=== PATIENT | female | born 1985 | race Caucasian/White ===

== ENCOUNTER 2017-04-26 13:09 | Emergency (ER) | payer MEDICARE, MEDICAID, SELFPAY ==
--- NOTE | 2017-04-26 13:29 | XR_ITS ---
XR chest 2V INDICATION: Wheezing, suspect bronchitis COMPARISON: None available FINDINGS: The cardiovascular structures are unremarkable. No mediastinal shift or hilar mass is evident. The lungs are well expanded and clear bilaterally. The costophrenic sulci are sharp. No significant bony anomalies are apparent. IMPRESSION: Negative chest.
[2017-04-26 14:35] VITALS: BP 124/60; PULSE 65; RESP 20; TEMP 37.2; O2SAT 99; BMI 42.0
--- NOTE | 2017-04-26 15:24 | HMH.EDUTC ---
[facility] [place] Disposition Clinical Impression: Cough Disposition: Home, Self-Care Condition on Discharge: Good Instructions: Cough Additional Instructions: * No sign of bacterial infection. Likely viral. Virus can take 7-14 days to run their course * Monitor Temp. Follow up if fever develops * Encourage fluids, water, gatorade, powerade, pedialyte if /toddler/child * sleep elevated * humidifier/vaporizer * Discussed bromfed. Mom declined. Has robitussin and tessalon perles at home. Aware if cough becomes productive, stop tessalon perles and start mucinex but be sure to follow up Follow up with primary care IMMEDIATELY for new or worsening symptoms OR no noticeable improvement over the next 48-72 hours. 911 for difficulty breathing. Time of Disposition: 15:33 Medical Decision Making Vital Signs: 04/26/17 14:35 Temperature 98.9 F Temperature Source Oral Pulse Rate [Left Brachial] 65 Respiratory Rate 20 Blood Pressure [Left Arm] 124/60 Blood Pressure Mean [Left Arm] 81 Blood Pressure Source [Left Arm] Automatic Cuff Blood Pressure Position [Left Arm] Sitting 02 Sat by Pulse Oximetry 99 Oxygen Delivery Method Room Air - Liam Inquiry Pt receiving controlled substance: No [facility] [place] HPI - General Stated complaint: fever cough Time Seen by Provider: 04/26/17 15:10 Mode of Arrival: Ambulatory Source of Information: Patient, Parent(s) Limitations: No Limitations Description of Symptoms (Recalled from Triage Doc. by RN): mom states that herself and pt's father have both had bronchitis and pt is now rattling in her chest and has a cough HEENT Symptoms (Recalled from RN notes): No Resp Symptoms (Recalled from RN notes): Yes (cough, rattling in chest, exposed to bronchitis) Skin Symptoms (Recalled from RN notes): No MS Symptoms (Recalled from RN notes): No Functional Status (Recalled from RN notes): n/a - History of Present Illness Provider Complaint: Here w/ mom c/o cough. Started yesterday. Coughed a lot last night. Mom wants to rule out pneumonia because pt is prone to having pneumonia when a cough develops. [place] feverish but no documented fever. Pt denies aches, chills, sore throat. Mom and dad both have been dx w/ bronchitis and neg for flu. Mom doesn't feel like this is the flu and declines flu test. No treatment prior to arrival. - Worker's Comp Is this a Worker's Comp case?: No [facility] History I have reviewed the patient's past medical history: Yes (down syndrome, hypothyroidism, adult acne, environmental allergies) Medical History: Reports:: Hypertension Denies:: Cancer, Diabetes Mellitus Type 1, Diabetes Mellitus Type 2, MRSA Laterality Cases: Bilateral: Tonsillectomy Other Surgeries: Yes: Other (cedrick, wisdom teeth) Amputation: No Fractures: No - *Social History Smoking Status: Never smoker Alcohol Intake: never - Psychiatric History Expresses thoughts of harming self/others: None Suicide Plan Description: No Plan ROS Obtained: Yes Systems reviewed as appropriate & no additional complaints - Constitutional Constitutional: Denies anorexia, Denies body ache, Denies chills, Denies fatigue - Eyes Eyes: Denies eye discharge - ENT Ears, Nose, Mouth, and Throat: Denies difficulty swallowing, Denies otalgia, Reports nasal congestion, Reports nasal discharge, Reports post nasal drip, Denies sinus pain, Denies sinus pressure, Denies sore throat, Denies throat swelling - Cardiovascular Cardiovascular: Denies chest pain, Denies irregular heart rhythm - Respiratory Respiratory: Yes chest congestion, Yes non-productive cough, No dyspnea, No pain with cough, No wheezing - Gastrointestinal Gastrointestingal: Denies: diarrhea, vomiting - Integumentary/Breasts Skin/Breast: Denies lesions, Denies rash - Neurologic Neurologic: Denies dizziness, Denies headache(s) Physical Exam - General General appearance: alert, in no apparent distress, obese - Eye Eye exam: Present: normal appearance - ENT ENT
--- NOTE | 2017-04-26 15:31 | ED_ITS ---
[facility] [place] Disposition Clinical Impression: Cough Disposition: Home, Self-Care Condition on Discharge: Good Instructions: Cough Additional Instructions: * No sign of bacterial infection. Likely viral. Virus can take 7-14 days to run their course * Monitor Temp. Follow up if fever develops * Encourage fluids, water, gatorade, powerade, pedialyte if /toddler/ child * sleep elevated * humidifier/vaporizer * Discussed bromfed. Mom declined. Has robitussin and tessalon perles at home. Aware if cough becomes productive, stop tessalon perles and start mucinex but be sure to follow up Follow up with primary care IMMEDIATELY for new or worsening symptoms OR no noticeable improvement over the next 48-72 hours. 911 for difficulty breathing.* Time of Disposition: 15:33 Medical Decision Making Vital Signs: 04/26/17 14:35 Temperature 98.9 F Temperature Source Oral Pulse Rate [Left Brachial] 65 Respiratory Rate 20 Blood Pressure [Left Arm] 124/60 Blood Pressure Mean [Left Arm] 81 Blood Pressure Source [Left Arm] Automatic Cuff Blood Pressure Position [Left Arm] Sitting 02 Sat by Pulse Oximetry 99 Oxygen Delivery Method Room Air - Liam Inquiry Pt receiving controlled substance: No [facility] [place] HPI - General Stated complaint: fever cough Time Seen by Provider: 04/26/17 15:10 Mode of Arrival: Ambulatory Source of Information: Patient, Parent(s) Limitations: No Limitations Description of Symptoms (Recalled from Triage Doc. by RN): mom states that herself and pt's father have both had bronchitis and pt is now rattling in her chest and has a cough HEENT Symptoms (Recalled from RN notes): No Resp Symptoms (Recalled from RN notes): Yes (cough, rattling in chest, exposed to bronchitis) Skin Symptoms (Recalled from RN notes): No MS Symptoms (Recalled from RN notes): No Functional Status (Recalled from RN notes): n/a - History of Present Illness Provider Complaint: Here w/ mom c/o cough. Started yesterday. Coughed a lot last night. Mom wants to rule out pneumonia because pt is prone to having pneumonia when a cough develops. [place] feverish but no documented fever. Pt denies aches, chills, sore throat. Mom and dad both have been dx w/ bronchitis and neg for flu. Mom doesn't feel like this is the flu and declines flu test. No treatment prior to arrival. - Worker's Comp Is this a Worker's Comp case?: No [facility] History I have reviewed the patient's past medical history: Yes (down syndrome, hypothyroidism, adult acne, environmental allergies) Medical History: Reports:: Hypertension Denies:: Cancer, Diabetes Mellitus Type 1, Diabetes Mellitus Type 2, MRSA Laterality Cases: Bilateral: Tonsillectomy Other Surgeries: Yes: Other (cedrick, wisdom teeth) Amputation: No Fractures: No - *Social History Smoking Status: Never smoker Alcohol Intake: never - Psychiatric History Expresses thoughts of harming self/others: None Suicide Plan Description: No Plan ROS Obtained: Yes Systems reviewed as appropriate & no additional complaints - Constitutional Constitutional: Denies anorexia, Denies body ache, Denies chills, Denies fatigue - Eyes Eyes: Denies eye discharge - ENT Ears, Nose, Mouth, and Throat: Denies difficulty swallowing, Denies otalgia, Reports nasal congestion, Reports nasal discharge, Reports post nasal drip, Denies sinus pain, Denies sinus pressure, Denies sore throat, Denies throat swelling - Cardiovascular Cardiovascular: De
[2017-04-26 15:36] VITALS: BP 124/60; PULSE 65; RESP 20; TEMP 37.2; O2SAT 99
== END 2017-04-26 15:38 | disposition home or self-care (01) ==
PROVIDERS: Emergency Provider Nurse Practitioner Family; Family Provider Family Medicine; PCP Internal Medicine Adolescent Medicine
DX: R05 Cough (principal); R50.9 Fever, unspecified
CPT/HCPCS: 71046; 99202; 99282

== ENCOUNTER → 2017-06-17 09:58 | Outpatient (POV) | payer MEDICARE, MEDICAID, SELFPAY | PROVIDERS: Family Provider Family Medicine; PCP Internal Medicine Adolescent Medicine; Visit Provider Otolaryngology | DX: Z00.00 Encounter for general adult medical examination without abnormal findings (principal) ==

== ENCOUNTER → 2018-01-29 16:16 | Outpatient (CLI) | payer MEDICARE, MEDICAID, SELFPAY ==
[2018-01-29 16:24] LABS: Adenovirus F 40/41, stool Not Detected (NotDetected); Astrovirus Not Detected (NotDetected); Campylobacter Not Detected (NotDetected); Clostridium Difficile A/B, PCR Not Detected (NotDetected); Cryptosporidium Not Detected (NotDetected); Cyclospora Cayetanesis Not Detected (NotDetected); Entamoeba histolytica Not Detected (NotDetected); Enteroaggregative E coli Not Detected (NotDetected); Enterotoxigenic E coli Not Detected (NotDetected); Giardia lamblia Not Detected (NotDetected); Norovirus Not Detected (NotDetected); Plesimonas Shigalloides, PCR Not Detected (NotDetected); Rotavirus A Not Detected (NotDetected); Salmonella, PCR Not Detected (NotDetected); Sapovirus Not Detected (NotDetected); Shiga-like toxin E coli Not Detected (NotDetected); Shigella Enterovasive E coli Not Detected (NotDetected); Vibrio Cholerae Not Detected (NotDetected); Vibrio, PCR Not Detected (NotDetected); Yersinia Entercolitica, PCR Not Detected (NotDetected)
[2018-01-29 22:32] LABS: Enteropathogenic E coli Detected (NotDetected)
== END ==
PROVIDERS: PCP Family Medicine; Visit Provider Internal Medicine Gastroenterology
DX: R19.7 Diarrhea, unspecified (principal)
CPT/HCPCS: 87507

== ENCOUNTER → 2018-03-03 09:54 | Outpatient (POV) | payer MEDICARE, MEDICAID, SELFPAY | PROVIDERS: Visit Provider Dermatology | DX: Z00.00 Encounter for general adult medical examination without abnormal findings (principal) ==

== ENCOUNTER → 2018-04-21 10:28 | Outpatient (POV) | payer MEDICARE, MEDICAID, SELFPAY | PROVIDERS: Visit Provider Dermatology | DX: Z00.00 Encounter for general adult medical examination without abnormal findings (principal) ==

== ENCOUNTER 2018-07-21 14:30 | Outpatient (RCR) | payer MEDICARE, MEDICAID, SELFPAY ==
--- NOTE | 2018-05-27 12:01 | HMH.PTOPEV ---
PT Outpatient Evaluation Rehab PT Outpatient Evaluation Start: 05/27/18 11:50 Freq: Status: Active Protocol: Document 05/27/18 11:50 MARY (Rec: 05/27/18 12:01 [email or web address] [id number]) Electronically Signed By Nba Merchant, PT 05/27/18 11:50 Outpatient Therapy Subjective History Subjective History Patient is a 33 year old female presenting to outpatient PT with reports of bilateral knee pain starting approximately 1 year ago of insidious onset per pt report. Most recent diagnostics indicate bilateral knee OA. Symptoms elevated with running /jumping/recreational activities. Comorbidites include down's syndrome, elevated BMI and OA. Chief Complaint Pain Stiff Clicks Weakness Symptom Type Ache Symptoms Relieved By Rest/Positioning Prior Functional Limitations None Current Functional Limitations Standing Squatting Recreation Activity Walking Stairs Balance Symptom Description Intermittent Level of pain today (0-10) 0 Pain scale - at its best (0-10) 0 Pain scale - at its worst (0-10) 5 Hip/Knee Eval Gait Observation General Gait Pattern Observation No Deviations/Normal Assistive Device Assistive Devices None / NA Palpation Tenderness bilateral Knee Palpation Finding Tenderness Knee Palpation Overall Comment posterior compartment MMT Hip Flexion Strength Grade 4- Good- Hip Abduction Strength Grade 3+ Fair+ Hip Adduction Strength Grade 4- Good- Hip Extension Strength Grade 3+ Fair+ Hip External Rotation Strength Grade 3+ Fair+ Hip Internal Rotation Strength Grade 3+ Fair+ Knee Extension Strength Grade 3+ Fair+ Knee Flexion Strength Grade 3+ Fair+ ROM right Hip ROM Reason Not Measured Within Functional Limits Knee Extension Active Range of Motion ( -4 degrees) Knee Flexion Active Range of Motion ( 98 degrees) left Hip ROM Reason Not Measured Within Functional Limits Knee Extension Active Range of Motion ( -5 degrees) Knee Extension Passive Range of Motion ( 0 degrees) Knee Flexion Active Range of Motion ( 94 degrees)
== END 2018-07-21 14:35 | disposition home or self-care (01) ==
LOC: PT 14:30
PROVIDERS: Visit Provider Nurse Practitioner Family
DX: M25.561 Pain in right knee (principal); M25.562 Pain in left knee
CPT/HCPCS: 97110; 97112; 97163

== ENCOUNTER → 2020-08-15 14:16 | Outpatient (POV) | payer MEDICARE, MEDICAID, SELFPAY | PROVIDERS: Visit Provider Dermatology | DX: Z00.00 Encounter for general adult medical examination without abnormal findings (principal) ==

== ENCOUNTER → 2020-10-09 12:44 | Outpatient (CLI) | payer MEDICARE, MEDICAID, SELFPAY ==
--- NOTE | 2020-10-09 | CA_ITS ---
APPROVED REPORT EXAM: Comprehensive 2D, Doppler, and color-flow Echocardiogram Certified Nurse Operating Room: Yanelis Neri RT(R) Ht: 4 ft 8 in Wt: 260lbs BSA: 1.98 BP: 124/60 mmHg Indications: Murmur, down's syndrome, HTN, obesity 2D Dimensions LVOT 1.76 cm (M/F) 1.5-2.5 LA Volume 29.50 mL LA Volume Index 14.89 mL/m2 (M/F) 16-34 M-Mode Dimensions RVDd 1.86 cm (0.9-2.6) LA Diam 3.84 cm (1.9-4.0) LVDd 4.36 cm (3.5-5.7) Ao Diam 2.12 cm (2.0-3.7) LVDs 3.25 cm (3.5-5.7) IVSd 1.04 cm (0.6-1.1) PWd 1.04 cm (0.6-1.1) EF (Teich) 50.50% FS 25.50% EDV (Teich) 85.80 mL ESV (Teich) 42.50 mL LV Diastology E Decel Time 227.00 (160-240 msec) E/A Ratio 1.5 MED E' 7.60 (< 7 cm/sec) E'/MED E' Ratio 22.93 (>14) LAT E' 9.20 (<10 cm/sec) E/LAT E' Ratio 18.95 (>14) Aortic Valve LVOT Max 188.00 (70-110 cm/s) LVOT VTI 36.90 cm AoV Peak Ricardo. 316.00 (50-130 cm/s) AI PHT 738.00 ms AO Peak GR. 40.10 mmHg AO Mean GR. 19.80 (<5 mmHg) AO VTI 62.52 (18-25 cm) SANTOS (VTI) 1.44 (2.5-4.5 cm2) Mitral Valve MV E Max Ricardo. 174.00 (40-130 cm/s) MV A Velocity 118.00 (40-130 cm/s) E/A Ratio 1.48 MV Decel. Time 227.00 (160-240 ms) MV PHT 66.00 ms Tricuspid Valve TR P. Velocity 251.00 cm/s RAP Estimate 10.00 mmHg RVSP 35.20 mmHg Left Ventricle Left atrium is mildly enlarged, left ventricle is normal size, mild concentric left ventricular hypertrophy, visually estimated ejection fraction 55% with no regional wall motion abnormality, diastolic parameters are inconclusive. Right Ventricle Right atrium and right ventricle are normal size and contractility. Aortic Valve Aortic valve is thickened and calcified, mean gradient across valve is 22 mmHg, valve area is 1.4 cm, represents mild aortic stenosis, there is mild aortic insufficiency. Mitral Valve Mitral valve leaflets are minimally thickened, there is mild mitral regurgitation. Tricuspid Valve Tricuspid grossly normal, there is mild tricuspid regurgitation, tricuspid regurgitation (inadequate for calculation of the right ventricular systolic pressure. Pulmonic Valve Pulmonic valve is poorly visualized. Great Vessels Aortic root is normal size. Pericardium No significant pericardial effusion noted. Conclusion 1. Mildly enlarged left atrium, normal left ventricular size, mild concentric left ventricular hypertrophy, visually estimated ejection fraction 55% with no regional wall motion abnormality, diastolic parameters are inconclusive. 2. Thickened and calcified aortic valve with mean gradient across valve of 22 mmHg, valve area 1.4 cm by represents mild aortic stenosis, there is mild aortic insufficiency. 3. Mild mitral and tricuspid regurgitation. 4. No significant pericardial effusion noted. Electronically signed by : Frank Otto, 10/09/2020 21:51:52
== END ==
PROVIDERS: PCP Family Medicine; Visit Provider Nurse Practitioner Family
DX: R01.1 Cardiac murmur, unspecified (principal)
CPT/HCPCS: 93306

== ENCOUNTER 2022-03-05 09:21 | Emergency (ER) | payer MEDICARE, MEDICAID, SELFPAY ==
[2022-03-05 09:40] VITALS: BP 118/57; PULSE 68; RESP 18; TEMP 36.9; O2SAT 100; BMI 41.8
--- NOTE | 2022-03-05 10:11 | EXP.UTC ---
Discharge Plan Disposition Patient Disposition: Home, Self-Care Condition: Good Prescriptions Prescriptions: New prednisone 10 mg tablet 10 mg PO BID 5 Days Qty: 10 0RF azithromycin [Zithromax Z-Bolivar] 250 mg tablet See Rx Instructions .ROUTE .COMPLEX 5 Days Qty: 6 0RF Rx Instructions: For 250 mg dose pack: take 500 mg today (day 1), then 250 mg for 4 days (days 2-5) guaifenesin [Mucinex] 600 mg tablet extended release 12hr 600 mg PO BID PRN (Reason: cough) Qty: 20 0RF No Action norgestimate-ethinyl estradiol [Estarylla] 0.25-35 mg-mcg tablet 1 tab PO DAILY levothyroxine 25 mcg tablet 25 mcg PO DAILY levothyroxine 200 mcg tablet 200 mcg PO DAILY Referrals Follow up/Referrals: Paula Thomas APRN [Primary Care Provider] - See instructions Activity Restrictions/Add. Instructions Additional Instructions/Restrictions: *Monitor Temp, Over the counter Motrin or Tylenol as directed/as needed Tylenol every 4 hours and Motrin every 6 hours (as long as your family doctor has told you that you can take it) for fever or pain. and straight to ER if unable to lower temp less than 101.0 after medication given *Warm salt water gargles may help to soothe the throat *Throat Lozenges? *Warm fluids like tea with honey may help to soothe the throat? *Sleep elevated *Humidifier/Vaporizer *If you did not take Penicillin shot or was unable to, start taking antibiotic immediately and make sure that you take it for the FULL length of time although you should start to feel better in 24-48 hours *change toothbrush and toothpaste 24-48 hours after starting to take antibiotics so you do not reinfect yourself Monitor Temp. Tylenol and/or Ibuprofen as needed. ER if fever is no less than 101 despite alternating Tylenol and Ibuprofen * Encourage fluids, water, Gatorade, powerade, pedialyte if infant/toddler/or child *Cold fluids, popsicles and ice cream may feel good on his throat Follow up IMMEDIATELY for new or worsening symptoms or no Noticeable improvement over the next 48-72 hours. 911 for difficulty breathing or swallowing Clinical Impressions Clinical Impression: Strep throat Instructions Patient Instructions: DI for Strep Throat, Strep Throat, Prednisone Discharge ED Provider: Mary Dudley [facility] [place] H[place] General Stated complaint: cough, sob Mode of Arrival: Ambulatory Source of Information: Patient and Parent(s) Limitations: No Limitations Time Seen by Provider: 03/05/22 10:11 Description of Symptoms (Recalled from Triage Doc. by RN): MOTHER REPORTS CHILD WITH COUGH, RUNNY NOSE, AND CONGESTION SINCE FRIDAY HEENT Symptoms (Recalled from RN notes): Yes Resp Symptoms (Recalled from RN notes): Yes Skin Symptoms (Recalled from RN notes): No MS Symptoms (Recalled from RN notes): No Functional Status (Recalled from RN notes): WNL History of Present Illness Provider Complaint: Mother states that she hasnt been feeling well for several days States that she has been having chest congestion, cough, runny nose and hoarse sounding voice States that today she wasnt feeling well so she brought her in to get her checked out Related Data Home Medications Medication Instructions Recorded Confirmed levothyroxine 200 mcg tablet 200 mcg PO DAILY THYROID 03/05/22 03/05/22 levothyroxine 25 mcg tablet 25 mcg PO DAILY THYROID 03/05/22 03/05/22 norgestimate 0.25 mg-ethinyl 1 tab PO DAILY control 03/05/22 03/05/22 estradiol 35 mcg tablet (Estarylla) Previous Rx's Medication Instructions Recorded azithromycin 250 mg tablet See Rx Instructions PO .COMPLEX 5 03/05/22 (Zithromax Z-Bolivar) days #6 tabs guaifenesin 600 mg tablet, 600 mg PO BID PRN cough #20 tabs 03/05/22 extended release 12 hr (Mucinex) prednisone 10 mg tablet 10 mg PO BID 5 days #10 tabs 03/05/22 Allergies Allergy/AdvReac Type Severity Reaction Status Date / Time No Known Allergies Allergy Verified 03/05/22 09
[2022-03-05 10:20] LABS: UTC Strep Screen (Rapid) Positive (Negative)
[2022-03-05 10:30] VITALS: BP 118/57; PULSE 68; RESP 18; TEMP 36.9; O2SAT 100
== END 2022-03-05 10:39 | disposition home or self-care (01) ==
PROVIDERS: Emergency Provider Nurse Practitioner; PCP Nurse Practitioner Family
DX: J02.0 Streptococcal pharyngitis (principal); B95.0 Streptococcus, group A, as the cause of diseases classified elsewhere; R50.9 Fever, unspecified; R06.02 Shortness of breath; R05.9 Cough, unspecified; R09.81 Nasal congestion; E07.9 Disorder of thyroid, unspecified; J45.909 Unspecified asthma, uncomplicated; Z79.52 Long term (current) use of systemic steroids; Z79.899 Other long term (current) drug therapy; Z79.3 Long term (current) use of hormonal contraceptives
CPT/HCPCS: 87880; 99213; G0463

== ENCOUNTER 2023-05-24 10:07 | Emergency (ER) | payer MEDICARE, MEDICAID, SELFPAY ==
--- NOTE | 2023-05-24 11:08 | ED_ITS ---
Discharge Plan Disposition Patient Disposition: Home, Self-Care Condition: Good Prescriptions Prescriptions: New benzonatate [benzonatate] 100 mg capsule 100 mg PO TIDP PRN (Reason: Cough) Qty: 30 0RF oseltamivir [Tamiflu] 75 mg capsule 75 mg PO BID Qty: 10 0RF ondansetron 4 mg Tablet,Disintegrating 4 mg PO Q8H PRN (Reason: Nausea) Qty: 12 0RF No Action norgestimate-ethinyl estradiol [Estarylla] 0.25-35 mg-mcg tablet 1 tab PO DAILY tretinoin 0.025 % cream 1 applic TOPICAL DAILY fluconazole 200 mg tablet 200 mg PO DAILY levothyroxine 25 mcg tablet 25 mcg PO DAILY levothyroxine 200 mcg tablet 200 mcg PO DAILY Referrals Follow up/Referrals: Adama Weaver MD [Primary Care Provider] - See instructions Activity Restrictions/Add. Instructions Additional Instructions/Restrictions: Drink plenty of fluids. Take tylenol or ibuprofen for pain or fever. Take the medications as directed. Follow up with your regular doctor. GO TO THE ER FOR ANY WORSENING SYMPTOMS Clinical Impressions Clinical Impression: Influenza A Instructions Patient Instructions: DI for Influenza -- Adult, Ondansetron, Oseltamivir Discharge ED Provider: Pedro Styles [facility] General Stated complaint: fever 101 sore throat, cough Time Seen by Provider: 05/24/23 11:08 History of Present Illness Provider Complaint: She states that for the past 2 days she has had fever, chills, malaise, body aches, and a cough. Related Data Home Medications Medication Instructions Recorded Confirmed fluconazole 200 mg tablet 200 mg PO DAILY 05/24/23 05/24/23 levothyroxine 200 mcg tablet 200 mcg PO DAILY 05/24/23 05/24/23 levothyroxine 25 mcg tablet 25 mcg PO DAILY 05/24/23 05/24/23 norgestimate 0.25 mg-ethinyl 1 tab PO DAILY 05/24/23 05/24/23 estradiol 35 mcg tablet (Estarylla) tretinoin 0.025 % topical cream 1 applic topical DAILY 05/24/23 05/24/23 Previous Rx's Medication Instructions Recorded benzonatate 100 mg capsule 100 mg PO TIDP PRN Cough #30 caps 05/24/23 ondansetron 4 mg disintegrating 4 mg PO Q8H PRN Nausea #12 tabs 05/24/23 tablet oseltamivir 75 mg capsule (Tamiflu) 75 mg PO BID #10 caps 05/24/23 Allergies Allergy/AdvReac Type Severity Reaction Status Date / Time No Known Allergies Allergy Verified 03/05/22 09:49 [facility] Disclaimer: The information contained in this section may have been updated after the patient was seen, as this information can be updated by other users. Medical History (Updated 05/24/23 @ 11:38 by Pedro Styles APRN) Asthma Thyroid disease Surgical History (Updated 03/05/22 @ 09:48 by Jennifer Nayak RN) History of cholecystectomy History of tonsillectomy History of tympanostomy tube placement Social History (Updated 03/05/22 @ 10:25 by Mary Dudley APRN) Smoking Status: Never smoker alcohol intake: never current occupational status: other Travel in the last 8 weeks: None ROS Obtained: Yes All systems reviewed & no additional complaints except as documented Constitutional Constitutional: Reports chills and Reports fever(s) Eyes Eyes: Denies eye discharge ENT Ears, Nose, Mouth, and Throat: Reports as per HPI Cardiovascular Cardiovascular: Denies chest pain Respiratory Respiratory: Denies chest congestion and Reports cough Gastrointestinal Gastrointestingal: Reports nausea; Denies abdominal pain, constipation, cramping, diarrhea or vomiting Musculoskeletal Musculoskeletal: Denies arthralgias Integumentary/Breasts Skin/Breast: Denies rash Neurologic Neurologic: Denies paresthesias Physical Exam General General appearance: alert and in no apparent distress Head Head exam: atraumatic, normocephalic and normal inspection Eye Eye exam: Present normal appearance, PERRL and EOMI ENT ENT exam: Present normal exam, normal oropharynx, mucous membranes moist, TM's normal bilaterally and normal external ear exam Neck Neck exam: Present normal inspection, full ROM and trachea midline; Absent meningismus or lymphadenopathy Chest Chest inspection: Present normal inspection and symmetric chest wall rise; Absent tenderness Respiratory Respiratory exam: Present normal lung sounds bilaterally; Absent respiratory distress Cardiovascular Cardiovascular exam: Present regular rate and normal rhythm; Absent JVD Abdominal Exam Abdominal exam: Present soft and normal bowel sounds; Absent distention, tenderness or guarding Extremities Exam Extremities exam: Present normal inspection, full ROM and normal capillary refill; Absent calf tenderness Back Exam Back exam: Present normal inspection; Absent tenderness Neurological Exam Neurological exam: Present alert and oriented X3 Psychiatric Psychiatric exam: Present normal affect and normal mood Skin Skin exam: Present warm, dry, intact and normal color Lymphatic Lymphatic Findings: no adenopathy Medical Decision Making Medical Records Medical records reviewed: No I reviewed the patient's medical records. Liam Inquiry Pt receiving controlled substance: No Lab Data Lab results reviewed: Yes I reviewed the patient's lab results.
[2023-05-24 11:10] VITALS: BP 139/66; PULSE 66; RESP 20; TEMP 36.6; O2SAT 99; BMI 45.3
[2023-05-24 11:40] LABS: UTC Strep Screen (Rapid) Negative (Negative)
[2023-05-24 11:41] LABS: UTC Influenza A Antigen Positive (Negative); UTC Influenza B Antigen Negative (Negative)
[2023-05-24 11:42] VITALS: BP 139/66; PULSE 66; RESP 20; TEMP 36.6; O2SAT 99
== END 2023-05-24 11:49 | disposition home or self-care (01) ==
PROVIDERS: Emergency Provider Nurse Practitioner Family; PCP Family Medicine
DX: J10.1 Influenza due to other identified influenza virus with other respiratory manifestations (principal); R50.9 Fever, unspecified; R05.9 Cough, unspecified; R07.0 Pain in throat; R53.81 Other malaise; E03.9 Hypothyroidism, unspecified
CPT/HCPCS: 87804; 87880; 99212; 99214; G0463

== ENCOUNTER 2023-12-06 11:22 | Emergency (ER) | payer MEDICARE, MEDICAID, SELFPAY ==
[2023-12-06 11:24] VITALS: BP 151/73; PULSE 71; RESP 20; TEMP 36.6; O2SAT 100; BMI 49.7
[2023-12-06 11:32] VITALS: BP 151/73; PULSE 70; O2SAT 100
--- NOTE | 2023-12-06 11:33 | HMH.EDGENADL ---
Discharge Plan Disposition Patient Disposition: Home, Self-Care Prescriptions Prescriptions: No Action norgestimate-ethinyl estradiol [Estarylla] 0.25-35 mg-mcg tablet 1 tab PO DAILY tretinoin 0.025 % cream 1 applic TOPICAL DAILY fluconazole 200 mg tablet 200 mg PO DAILY levothyroxine 25 mcg tablet 25 mcg PO DAILY levothyroxine 200 mcg tablet 200 mcg PO DAILY benzonatate [benzonatate] 100 mg capsule 100 mg PO TIDP PRN (Reason: Cough) Qty: 30 0RF oseltamivir [Tamiflu] 75 mg capsule 75 mg PO BID Qty: 10 0RF ondansetron 4 mg Tablet,Disintegrating 4 mg PO Q8H PRN (Reason: Nausea) Qty: 12 0RF Referrals Follow up/Referrals: Adama Weaver MD [Primary Care Provider] - See instructions Activity Restrictions/Add. Instructions Additional Instructions/Restrictions: Return to the emergency department for any new or worsening symptoms. Clinical Impressions Clinical Impression: Numbness and tingling in right hand Print Language Print Language: Filipino Discharge ED Provider: Aleyda Morillo General Adult HPI General Chief complaint: Extremity Injury, Upper Stated complaint: right hand pain/weakness dizziness Time Seen by Provider: 12/06/23 11:33 History of Present Illness HPI narrative: Patient is a 38-year-old with past medical history significant for Down syndrome and hypothyroidism presents to the emergency department with right upper extremity numbness weakness and dysarthria. Last known well 11P on 823 when patient went to bed. Patient woke up this morning feeling that she was having a hard time with her speech. She was talking to to a close friend who also noted that they are having trouble understanding her. Patient's mom reports that she sounds the same as her baseline. Patient has been complaining of 5 days of right hand numbness tingling. Patient will write for 5 to 6 hours/day which mom attributed the numbness and tingling to her writing a lot at home. This morning when patient stood up from the couch she felt lightheaded like she was about to pass out but does not currently feel dizzy at all no palpitations nausea vomiting no other weakness of any other extremities no visual changes, no headache. Related Data Home Medications ?Medication ?Instructions ?Recorded ?Confirmed fluconazole 200 mg tablet 200 mg PO DAILY 05/24/23 05/24/23 levothyroxine 200 mcg tablet 200 mcg PO DAILY 05/24/23 05/24/23 levothyroxine 25 mcg tablet 25 mcg PO DAILY 05/24/23 05/24/23 norgestimate 0.25 mg-ethinyl 1 tab PO DAILY 05/24/23 05/24/23 estradiol 35 mcg tablet (Estarylla) tretinoin 0.025 % topical cream 1 applic topical DAILY 05/24/23 05/24/23 Previous Rx's ?Medication ?Instructions ?Recorded benzonatate 100 mg capsule 100 mg PO TIDP PRN Cough #30 caps 05/24/23 ondansetron 4 mg disintegrating 4 mg PO Q8H PRN Nausea #12 tabs 05/24/23 tablet oseltamivir 75 mg capsule (Tamiflu) 75 mg PO BID #10 caps 05/24/23 Allergies Allergy/AdvReac Type Severity Reaction Status Date / Time No Known Allergies Allergy Verified 03/05/22 09:49 [facility] Disclaimer: The information contained in this section may have been updated after the patient was seen, as this information can be updated by other users. Medical History (Updated 12/06/23 @ 13:13 by Aleyda Morillo MD) Thyroid disease Asthma Surgical History (Updated 03/05/22 @ 09:48 by Jennifer Nayak RN) History of tympanostomy tube placement History of tonsillectomy History of cholecystectomy Social History (Updated 03/05/22 @ 10:25 by Mary Dudley APRN) Smoking Status: Never smoker alcohol intake: never current occupational status: other Travel in the last 8 weeks: None ROS Obtained: Yes All systems reviewed & no additional complaints except as documented Physical Exam General General appearance: alert and in no apparent distress Head Head exam: atraumatic Eye Eye exam: Present PERRL and EOMI ENT ENT exam: Present mucous membranes moist Neck Neck exam: Present normal inspection and full ROM Chest Chest inspection: Present symmetric chest wall rise Respiratory Respiratory exam: Present normal lung sounds bilaterally; Absent respiratory distress Cardiovascular Cardiovascular exam: Present regular rate and normal rhythm Abdominal Exam Abdominal exam: Present soft; Absent distention or tenderness Extremities Exam Extremities exam: Present other (negative tinnel and phalen test ); Absent tenderness Neurological Exam Neurological exam: Present alert, oriented X3, normal gait and motor sensory deficit (right upper extremity drift without weakness, intact sensation radial median ulnar nerve distribution bilateral upper extremities, NIH of 2 for right arm drift and mild dysarthria arm drift and mild to moderate dysarthria t arm drift) Medical Decision Making Liam Inquiry Pt receiving controlled substance: No Vital Signs: 12/06/23 11:24 12/06/23 11:32 Temperature 97.9 F Temperature Source Oral Pulse Rate 70 Pulse Rate [Radial] 71 Respiratory Rate 20 Blood Pressure 151/73 H Blood Pressure [Right Arm] 151/73 H Blood Pressure Mean [Right Arm] 99 Blood Pressure Source [Right Arm] Automatic Cuff Blood Pressure Position [Right Arm] Sitting 02 Sat by Pulse Oximetry 100 100 Oxygen Delivery Method Room Air Room Air Lab Data Lab Results 12/06/23 11:31: Urine Color Yellow, Urine Appearance Cloudy, Urine pH 6.0, Ur Specific [place] 1.010, Urine Protein Negative, Urine Glucose (UA) Negative, Urine Ketones Negative, Urine Blood Negative, Urine Nitrate Negative, Urine Bilirubin Negative, Urine Urobilinogen 0.2, Ur Leukocyte Esterase 2+ A, Urine RBC None, Urine WBC 3-5, Ur Squamous Epith Cells 10-20, Urine Bacteria Trace, Urine Opiates Screen Negative, Urine Methadone Screen Negative, Ur Barbituates Screen Negative, Ur Phencyclidine Scrn Negative, Ur Amphetamines Screen Negative, U Benzodiazepines Scrn Negative, Urine Cocaine Screen Negative, U Marijuana (THC) Screen Negative 12/06/23 12:00: WBC 5.3, RBC 4.35, Hgb 14.0, Hct 42.9, MCV 98.6, MCH 32.3 H, MCHC 32.7, RDW 14.2, Plt Count 264, MPV 7.7, Neut % (Auto) 68.4, Lymph % (Auto) 23.4, [place] % (Auto) 4.0, Eos % (Auto) 2.6, Baso % (Auto) 1.6, Neut # (Auto) 3.6, Lymph # (Auto) 1.2, [place] # (Auto) 0.2, Eos # (Auto) 0.1, Baso # (Auto) 0.1, PT 9.8 L, INR 0.86 L, APTT 23.7, Sodium 140, Potassium 4.6, Chloride 109 H, Carbon Dioxide 26, Anion Gap 9.6, BUN 14, Creatinine 1.10 H, Estimated Creat Clear 40, Estimated GFR 56 L, Est GFR ( Amer) 68, Glucose 101 H, Calcium 8.8, Total Bilirubin 0.7, AST 38 H, ALT 31, Alkaline Phosphatase 69, Troponin I < 0.01, Total Protein 7.3, Albumin 3.9, Globulin 3.4 H, Albumin/Globulin Ratio 1.1, Triglycerides 112, Cholesterol 202 H, LDL Cholesterol Direct 114.32, VLDL Cholesterol 22, HDL Cholesterol 56, Cholesterol/HDL Ratio 3.6 H, HCG, Quant < 2, Plasma/Serum Alcohol < 10 12/06/23 12:00 12/06/23 12:00 Orders (Tests/Meds): ED MEDICATIONS Generic Name Dose Route Start Last Admin Trade Name Freq PRN Reason Stop Dose Admin Sodium Chloride 10 ml 12/06/23 11:52 Sodium Chloride 0.9% 10ml Flush Syringe IV 01/05/24 11:51 NEEDED PRN Maintain IV Site Discontinued Medications Generic Name Dose Route Start Last Admin Trade Name Freq PRN Reason Stop Dose Admin Lactated Ringer's 1,000 mls @ 999 mls/hr 12/06/23 11:52 12/06/23 12:02 Lactated Ringer's 1000 Ml Bag IV 12/06/23 12:52 999 mls/hr .Q1H1M ONE Administration Iopamidol 80 ml 12/06/23 12:23 12/06/23 12:24 Iopamidol-370 (76%);100ml Bottle IV 12/06/23 12:24 80 ml ONCE ONE Administration Sodium Chloride 10 ml 12/06/23 12:23 12/06/23 12:24 Sodium Chloride 0.9% 10ml Syr (Rad Only) IV 12/06/23 12:24 10 ml ONCE ONE Administration Sodium Chloride 50 ml 12/06/23 12:23 12/06/23 12:24 0.9 % Sodium Chloride 50 Ml Vial IV 12/06/23 12:24 50 ml ONCE ONE Administration ORDERS Category Date Time Status CT angio head Stat Cat Scan 12/06/23 11:[address] angio neck Stat Cat Scan 12/06/23 11:[address] head/brain wo con Stat Cat Scan 12/06/23 11:52 Taken Activated Partial Thrombo Time Stat Lab 12/06/23 12:00 Completed Complete Blood Count Auto Diff Stat Lab 12/06/23 12:00 Completed Comprehensive Metabolic Panel Stat Lab 12/06/23 12:00 Completed Drug Screen,Urine Stat Lab 12/06/23 11:31 Completed Ethyl Alcohol Stat Lab 12/06/23 12:00 Completed HCG,Quantitative Stat Lab 12/06/23 12:00 Completed Lipid Panel Stat Lab 12/06/23 12:00 Completed Prothrombin Time INR Stat Lab 12/06/23 12:00 Completed Troponin I Q3H Lab 12/06/23 15:00 Ordered Troponin I Q3H Lab 12/06/23 18:00 Ordered Troponin I Stat Lab 12/06/23 12:00 Completed Urinalysis and Microscopic Stat Lab 12/06/23 11:31 Completed Urine Culture Stat Micro 12/06/23 11:31 Received Medical Decision Narrative: In summary, this 38-year-old female presents to the emergency department today with right upper extremity numbness weakness and dysarthria. On initial evaluation patient is hemodynamically stable saturating appropriately on room air afebrile no acute distress. Differential diagnosis includes but is not limited to ischemic hemorrhagic stroke, neuropraxia, carpal tunnel syndrome, intracranial mass, complex migraine. Based on these concerns, I ordered EKG CT head without contrast, CTA head and neck, CBC, CMP drugs abuse screen hCG lipid panel troponin UA [id number] glucose. ECG personally interpreted demonstrates Normal sinus rhythm no acute ST elevation depression concerning for acute ischemia Patient received 1 L of LR for treatment. Labs personally reviewed demonstrate Cr 1.1, initial troponin normal. CT imaging personally interpreted demonstrate no large vessel occlusion, no intracranial hemorrhage. Patient did not receive thrombolytics as patient is outside of thrombolytic window. NIH of 2. On reassessment patient reports improvement in her speech. Mom notes that her speech continues to be at baseline. Continues to not have numbness on exam. Patient's hand numbness and tingling is most likely associated to significant writing using her right hand. Patient and family agreeable with outpatient follow-up with her primary care provider and strict return precautions for any new or worsening symptoms. Critical Care Critical Care Time Critical Care Time: No
--- NOTE | 2023-12-06 11:52 | CT_ITS ---
PROCEDURE INFORMATION: Exam: CT Head Without Contrast Exam date and time: 12/06/2023 12:12 PM Age: 38 years old Clinical indication: Stroke-like symptoms; Altered mental status/memory loss; Additional info: Possible stroke TECHNIQUE: Imaging protocol: Computed tomography of the head without contrast. Radiation optimization: All CT scans at this facility use at least one of these dose optimization techniques: automated exposure control; mA and/or kV adjustment per patient size (includes targeted exams where dose is matched to clinical indication); or iterative reconstruction. Other technique: STROKE PROTOCOL was implemented. COMPARISON: No relevant prior studies available. FINDINGS: Brain: King-white matter differentiation and sulcation pattern is normal. There is normal density in the basal ganglia and thalamus. There is no intracranial hemorrhage. There are no pathologic extra-axial fluid collections. Cerebral ventricles: No ventriculomegaly. Paranasal sinuses: Visualized sinuses are unremarkable. No fluid levels. Mastoid air cells: Visualized mastoid air cells are well aerated. Bones: Unremarkable. No acute fracture. Soft tissues: Unremarkable. IMPRESSION: No acute intracranial pathology. ASSESSMENT: ASPECTS ([place] Stroke Program Early CT Score) is 10
--- NOTE | 2023-12-06 11:52 | CT_ITS ---
PROCEDURE INFORMATION: Exam: CTA Head With Contrast, Arteriography Exam date and time: 12/06/2023 12:15 PM Age: 38 years old Clinical indication: Stroke-like symptoms; Altered mental status/memory loss; Additional info: Possible stroke TECHNIQUE: Imaging protocol: Computed tomographic angiography of the head with contrast. Exam focused on the arteries. 3D rendering (Not supervised by radiologist): MIP and/or 3D reconstructed images were created by the technologist. Radiation optimization: All CT scans at this facility use at least one of these dose optimization techniques: automated exposure control; mA and/or kV adjustment per patient size (includes targeted exams where dose is matched to clinical indication); or iterative reconstruction. Contrast material: ISOVUE; Contrast volume: 80 ml; Contrast route: INTRAVENOUS (IV); COMPARISON: CT HEAD/BRAIN WO CON 12/06/2023 12:12 PM FINDINGS: ANTERIOR CIRCULATION: Right internal carotid artery: Intracranial segment is patent with no significant stenosis or occlusion. No aneurysm. Right middle cerebral artery: No occlusion or significant stenosis. No aneurysm. Right anterior cerebral artery: No occlusion or significant stenosis. No aneurysm. Left internal carotid artery: Intracranial segment is patent with no significant stenosis or occlusion. No aneurysm. Left middle cerebral artery: No occlusion or significant stenosis. No aneurysm. Left anterior cerebral artery: No occlusion or significant stenosis. No aneurysm. POSTERIOR CIRCULATION: Right vertebral artery: No occlusion or significant stenosis. No aneurysm. Left vertebral artery: No occlusion or significant stenosis. No aneurysm. Basilar artery: No occlusion or significant stenosis. No aneurysm. Right posterior cerebral artery: No occlusion or significant stenosis. No aneurysm. Left posterior cerebral artery: No occlusion or significant stenosis. No aneurysm. Brain: No definite mass, mass effect, or midline shift. Cerebral ventricles: No ventriculomegaly. Bones/joints: Unremarkable. No acute fracture. Soft tissues: Unremarkable. IMPRESSION: [id number] is intact. No evidence of large vessel occlusion.
--- NOTE | 2023-12-06 11:52 | ECG_ITS ---
APPROVED REPORT Exam: Resting ECG HR:67 bpm ECG Measurements Heart Rate 67 AXES WV 135 P 48 QRSd 88 QRS 68 QT 397 T -7 QTc 412 Conclusion Normal sinus rhythm, normal axis, no acute ST elevation, ST depression concerning for acute ischemia, T wave inversions in V1 Electronically signed by : Aleyda Morillo, 12/06/2023 13:18:00
--- NOTE | 2023-12-06 11:52 | CT_ITS ---
PROCEDURE INFORMATION: Exam: CTA Neck With Contrast Exam date and time: 12/06/2023 12:15 PM Age: 38 years old Clinical indication: Stroke-like symptoms; Altered mental status/memory loss; Additional info: Possible stroke TECHNIQUE: Imaging protocol: Computed tomographic angiography of the neck with contrast. Exam focused on the cervical segments of the vasculature. 3D rendering (Not supervised by radiologist): MIP and/or 3D reconstructed images were created by the technologist. Radiation optimization: All CT scans at this facility use at least one of these dose optimization techniques: automated exposure control; mA and/or kV adjustment per patient size (includes targeted exams where dose is matched to clinical indication); or iterative reconstruction. Contrast material: ISOVUE; Contrast volume: 80 ml; Contrast route: INTRAVENOUS (IV); COMPARISON: CT ANGIO HEAD 12/06/2023 12:15 PM FINDINGS: Right common carotid artery: No stenosis. No dissection or occlusion. Right internal carotid artery: There is no significant stenosis or occlusion (0%). Right external carotid artery: No occlusion or stenosis of the origin. Left common carotid artery: No stenosis. No dissection or occlusion. Left internal carotid artery: There is no significant stenosis or occlusion (0%). There is subtle irregularity and narrowing of the left internal carotid artery terminus (less than 30%). Left external carotid artery: No occlusion or stenosis of the origin. Right vertebral artery: There is no significant stenosis or occlusion (0%). Left vertebral artery: There is no significant stenosis or occlusion (0%). Soft tissues: Normal. No significant soft tissue swelling. Bones/joints: No acute fracture. Lungs: There are minimal airspace opacities in the left upper lobe, likely related atelectasis. IMPRESSION: No significant stenosis or occlusion in the vertebral arteries and carotid arteries in the neck. REFERENCES: NASCET CRITERIA. The degree of stenosis in the cervical segment of the internal carotid artery is based on NASCET criteria. Normal is no stenosis. Mild is less than 50% stenosis. Moderate is 50-69% stenosis. Severe is 70% to 99% stenosis. Total occlusion is no detectable patent lumen. COMMENT: THIS REPORT CONTAINS FINDINGS THAT MAY BE CRITICAL TO PATIENT CARE. The exam findings were verbally communicated by me to Aleyda Hollins via telephone conference at 12:36 PM EDT on 12/06/2023. The findings were acknowledged and understood.
[2023-12-06] MEDS: LACTATED RINGERS 1000ML 1,000 ML 999 ML IV (12:02)
--- NOTE | 2023-12-06 12:05 | PC.NURSE ---
pt going to ct
[2023-12-06 12:11] LABS: Basophils # 0.1 K/mm3 (0-0.2); Basophils % 1.6 % (0.1-2.0); Eosinophils # 0.1 K/mm3 (0.0-0.4); Eosinophils % 2.6 % (0.1-12.0); Hematocrit 42.9 % (37.0-47.0); Lymphocytes # 1.2 K/mm3 (0.7-4.5); Lymphocytes % 23.4 % (10-50); Mean Corpuscular HGB Conc 32.7 g/dL (31.8-35.4); Mean Corpuscular Hemoglobin 32.3 pg (27.0-31.2); Mean Corpuscular Volume 98.6 fl (81-99); Mean Platelet Volume 7.7 fl (7.4-10.4); Monocytes # 0.2 K/mm3 (0.1-1.0); Neutrophils # 3.6 K/mm3 (1.8-7.8); Neutrophils % 68.4 % (37.0-80.0); Platelet Count 264 K/mm3 (142-424); Red Blood Count 4.35 M/mm3 (4.20-5.40); Red Cell Distribution Width 14.2 % (11.5-17.5); White Blood Count 5.3 K/mm3 (4.8-10.8)
[2023-12-06 12:16] LABS: Albumin Level 3.9 g/dl (3.5-5.0); Chloride 109 mmol/L (98-107)
[2023-12-06 12:17] LABS: Potassium 4.6 mmoL/L (3.5-5.1); Sodium 140 mmol/L (136-145)
--- NOTE | 2023-12-06 12:18 | PC.NURSE ---
PT RETURNED FROM CT
[2023-12-06 12:19] LABS: Alanine Aminotransferase 31 U/L (12-78); Albumin/Globulin Ratio 1.1 (1.1-1.8); Anion Gap 9.6 mEq/L (5-15); Aspartate Amino Transferase 38 U/L (14-36); Blood Urea Nitrogen 14 mg/dl (7-17); Carbon Dioxide 26 mmol/L (22.0-30.0); Creatinine Clearance Estimated 40 mL/min (50-200); Estimated Glomerular Filt Rate 56 ml/min (>60); GFR (African American) 68 ML/MIN (>60); Globulin 3.4 g/dL (1.3-3.2); Total Protein,Serum 7.3 g/dl (6.3-8.2)
[2023-12-06 12:20] LABS: Alkaline Phosphatase 69 U/L (38-126); Bilirubin,Total 0.7 mg/dl (0.2-1.3); Calcium 8.8 mg/dl (8.4-10.2); Cholesterol 202 mg/dl (140-200); Glucose 101 mg/dl (74-100); Triglycerides 112 mg/dl (30-150); VLDL Cholesterol 22 mg/dL (0-40)
[2023-12-06 12:22] LABS: Activated Partial Thrombo Time 23.7 seconds (22.8-30.6); INR 0.86 (0.9-1.1); Prothrombin Time 9.8 seconds (10.1-12.5)
[2023-12-06] MEDS: SODIUM CHLORIDE 0.9% 10ML SYR (RAD ONLY) 10 ML IV (12:24)
[2023-12-06] MEDS: 0.9 % SODIUM CHLORIDE 50 ML VIAL IV (12:24)
[2023-12-06] MEDS: IOPAMIDOL-370 (76%);100ML BOTTLE 80 ML IV (12:24)
[2023-12-06 12:25] LABS: Ethyl Alcohol < 10 mg/dl (0-10)
[2023-12-06 12:31] LABS: Direct LDL Cholesterol 114.32 mg/dL (100-129)
[2023-12-06 12:31] LABS: Microscopic, Urine URINE MICROSCOPIC (MICROSCOPIC)
--- NOTE | 2023-12-06 12:35 | PC.NURSE ---
alexia panda speaking with marine
[2023-12-06 12:53] LABS: Appearance,Urine CLOUDY (Clear); Bilirubin,Urine Negative (Negative); Blood, Urine Negative (Negative); Color,Urine YELLOW (Yellow); Glucose,Urine (UA) Negative (Negative); Ketones,Urine Negative (Negative); Leukocyte Esterase,Urine 2+ (Negative); Nitrate,Urine Negative (Negative); Protein,Urine Negative (Negative); Urobilinogen,Urine 0.2 EU/dl (0.2)
[2023-12-06 13:01] VITALS: BP 133/67; PULSE 62; O2SAT 98
[2023-12-06 13:02] LABS: HCG,Quantitative < 2 mIU/ml (0-5.42); Troponin I < 0.01 ng/ml (0.00-0.034)
[2023-12-06 13:03] LABS: Barbiturates Screen,Urine Negative ng/ml (<200)
[2023-12-06 13:04] LABS: Amphetamine/Metha Screen,Urine Negative ng/ml (<1000); Benzodiazepines Screen,Urine Negative ng/ml (<200)
[2023-12-06 13:05] LABS: Cannabinoid Screen,Urine Negative ng/ml (<50); Cocaine Screen,Urine Negative ng/ml (<300)
[2023-12-06 13:05] LABS: Chol/HDL Ratio 3.6 (1-3.5); HDL Cholesterol 56 mg/dl (40-60)
[2023-12-06 13:06] LABS: Methadone Screen,Urine Negative ng/ml (<300)
[2023-12-06 13:07] LABS: Opiate Screen,Urine Negative ng/ml (<300); Phencyclidine Screen,Urine Negative ng/ml (<25)
[2023-12-06 13:12] LABS: Bacteria,Urine Trace /lpf
[2023-12-06 13:15] VITALS: BP 133/67; PULSE 70; RESP 18; TEMP 36.7; O2SAT 98
== END 2023-12-06 13:20 | disposition home or self-care (01) ==
PROVIDERS: Emergency Provider Student in an Organized Health Care Education/Training Program; PCP Family Medicine
DX: M79.641 Pain in right hand (principal); R53.1 Weakness; R42 Dizziness and giddiness; R20.0 Anesthesia of skin; R20.2 Paresthesia of skin; Q90.9 Down syndrome, unspecified; E03.9 Hypothyroidism, unspecified; J45.909 Unspecified asthma, uncomplicated
CPT/HCPCS: 70450; 70496; 70498; 80053; 80061; 80307; 80320; 81001; 84484; 84702; 85025; 85610; 85730; 87086; 93005; 96360; 99285; G0480; J7120; Q9967